=== PATIENT | female | born 1995 | race Caucasian/White ===

== ENCOUNTER → 2018-12-11 | Outpatient (CLI) | payer OTHER ==
--- NOTE | 2018-12-11 12:44 | KCIC ---
STUDY: MRI of the left knee without contrast INDICATION: Predominantly medial left knee pain. COMPARISON: No prior cross-sectional imaging is available for comparison. TECHNIQUE: Multiplanar MR imaging of the left knee performed without the use of intravenous or intra-articular contrast. FINDINGS: Menisci: The medial and lateral menisci are intact. Cruciate ligaments: The ACL and PCL are intact. Collateral ligaments: Unremarkable medial and lateral collateral ligamentous structures. The IT band is within normal limits. Tendons: No acute tendinous injury at the knee. Cartilage: Patellofemoral: Intact. Lateral compartment: Intact. Medial compartment: Intact. Bones: No acute fracture or aggressive marrow signal abnormality. Miscellaneous: No significant knee joint effusion. Tiny amount of fluid interposed between the semimembranosus and medial head gastrocnemius tendons. IMPRESSION: No acute internal derangement of the left knee. The menisci and cruciate ligaments are intact Electronically signed by: FABRIZIO LAINEZ MD (12/11/2018 12:42 PM) [id number]
== END | disposition home or self-care (01) ==
LOC: KCIC MRI 08:25
PROVIDERS: ATTEND Nurse Practitioner Family
DX: M25.562 Pain in left knee (principal)
CPT/HCPCS: 73721